=== PATIENT | female | born 1975 | race Caucasian/White ===

== ENCOUNTER 2017-10-25 18:25 | Emergency (ER) | payer MEDICARE ==
[~2017-10-25] VITALS: Ht 154.9 cm; Wt 99.8 kg
[~2017-10-25 18:25] MED LIST: ACEBUTCAFT; ACET500; ACTOS; AMIT25 PO; AMOX500 PO; ASCO500; BACL10 PO; CALAN PO; CALCA500CH PO; CALCAVITD PO; CALCIT950 PO; CALCIUM PO; CEPH500 PO; CHOL10002; CLIN300 PO; CODGUAEL PO; CYAN100 PO; CYCL10 PO; DULO60 PO; ENOX80I SC; ERGO50000 PO; ERYT.5TO OS; ESCI10; FAMO20 PO; FURO20 PO; GABA100 PO; HYDACE5 PO; HYDCHL12.5 PO; HYDHOMSY; IBUP400; IBUP800; IRON18 MG PO; KETO10 PO; LASIX; LEVSOD100; LEVSOD100 PO; LEVSOD112 PO; LEVSOD150; LEVSOD200; LEVSOD200 PO; LEVSOD25 PO; Levothyroxine200 MCG; Levothyroxine200 MCG PO; MAGOXI400 PO; METCAR500 PO; MULVITMIND PO; NAPR220; Norco 5-325 Ta1 EACH PO; ONDA4ODT MM; OXYACE5T PO; PIOG15 PO; Percocet 5-3251 EACH PO; SERT20L; SUMA25; SYNTHROID; SYNTHROID0.2 MG PO; TOPI25 PO; TRAM50; VERA120 PO; VITAMIN D PO; Verapamil ER100 MG; Verotin-Gr Cap1 EACH; WHEELCHAIR USE; Zofran8 MG PO
[2017-10-25] MEDS ORDERED: Norco 5-325 Ta1 EACH PO (20:22)
== END 2017-10-25 20:30 | disposition home or self-care (01) ==
LOC: ER 18:25
DX: M79.662 Pain in left lower leg (principal); E03.9 Hypothyroidism, unspecified; I10 Essential (primary) hypertension; Z88.6 Allergy status to analgesic agent; Z88.1 Allergy status to other antibiotic agents; Z88.2 Allergy status to sulfonamides; Z79.899 Other long term (current) drug therapy; Z98.84 Bariatric surgery status; W19.XXXA Unspecified fall, initial encounter
CPT/HCPCS: 73564; 73590; 99283

== ENCOUNTER 2018-03-18 07:09 | Day surgery (SDC) | payer BC, MEDICARE ==
[~2018-03-18] VITALS: Ht 154.9 cm; Wt 94.9 kg
== END 2018-03-18 13:04 | disposition home or self-care (01) ==
LOC: ORSCSDS 07:09
PROVIDERS: Orthopaedic Surgery
PROC: 0MRP47Z Replacement of Left Knee Bursa and Ligament with Autologous Tissue Substitute, Percutaneous Endoscopic Approach (ICD-10-PCS; principal; 2018-03-18 08:30)
PROC: 0SBD4ZZ Excision of Left Knee Joint, Percutaneous Endoscopic Approach (ICD-10-PCS; principal; 2018-03-18 08:30)
DX: S83.512A Sprain of anterior cruciate ligament of left knee, initial encounter (principal); M22.42 Chondromalacia patellae, left knee; M23.252 Derangement of posterior horn of lateral meniscus due to old tear or injury, left knee; M23.222 Derangement of posterior horn of medial meniscus due to old tear or injury, left knee; E03.9 Hypothyroidism, unspecified; E66.01 Morbid (severe) obesity due to excess calories; Z68.39 Body mass index [BMI] 39.0-39.9, adult; Z79.899 Other long term (current) drug therapy
CPT/HCPCS: C1713; J0171; J0690; J1100; J2250; J2405; J2795; J3010

== ENCOUNTER → 2018-11-10 | Outpatient (CLI) | payer BC, MEDICARE ==
[2018-11-13 02:12] LABS: CHLAMYDIA TRACHOMATIS, NAA Negative (Negative); HPV 16 Negative (Negative); HPV 18 Negative (Negative); HPV OTHER HR TYPES Negative (Negative); NEISSERIA GONORRHOEAE, NAA Negative (Negative)
== END | disposition home or self-care (01) ==
LOC: LAB SHORT 16:22 → LAB 16:22
PROVIDERS: Obstetrics & Gynecology
DX: O09.521 Supervision of elderly multigravida, first trimester (principal)
CPT/HCPCS: 87491; 87591; 87624; G0123

== ENCOUNTER → 2019-05-12 | Outpatient (CLI) | payer BC, MEDICARE ==
[~2019-05-12] MED LIST changes: +MELA3 PO; +UNISOM25 MG PO
== END | disposition home or self-care (01) ==
LOC: LAB 12:25 → LAB SHORT 12:25
DX: Z34.00 Encounter for supervision of normal first pregnancy, unspecified trimester (principal)
CPT/HCPCS: 87081; 87653

== ENCOUNTER 2019-06-01 19:11 | Inpatient (IN) | payer BC, MEDICARE ==
[~2019-06-01] VITALS: Ht 154.9 cm; Wt 108.0 kg
[~2019-06-01 19:11] MED LIST changes: -MELA3 PO; -UNISOM25 MG PO
[2019-06-01] MEDS ORDERED: UNISOM25 MG PO (19:56)
[2019-06-01] MEDS ORDERED: MELA3 PO (19:56)
[2019-06-01 20:42] LABS: BASOPHILS ABSOLUTE AUTO 0.03 K/mm3 (0.00-0.23); BASOPHILS PERCENT AUTO 0 % (0-2); EOSINOPHILS ABSOLUTE AUTO 0.05 K/mm3 (0.00-0.68); EOSINOPHILS PERCENT AUTO 1 % (0-6); Hematocrit 38.6 % (33.0-51.0); Hemoglobin 12.6 g/dL (11.5-16.0); IMMATURE GRAN ABSOLUTE AUTO 0.03 K/mm3 (0.00-0.10); IMMATURE GRAN PERCENT AUTO 0 % (0-1); LYMPHOCYTES ABSOLUTE AUTO 2.25 K/mm3 (0.84-5.20); LYMPHOCYTES PERCENT AUTO 25 % (21-46); MONOCYTES ABSOLUTE AUTO 0.71 K/mm3 (0.16-1.47); MONOCYTES PERCENT AUTO 8 % (4-13); Mean Corpuscular HGB 31.5 pg (26.0-34.0); Mean Corpuscular HGB Conc 32.6 g/dL (31.5-36.5); Mean Corpuscular Volume 97 fL (80-100); Mean Platelet Volume 10.9 fL (9.1-12.4); NEUTROPHILS PERCENT AUTO 66 % (41-73); Platelet Count 218 K/mm3 (150-400); RDW Coefficient Variation 12.2 % (11.7-14.2); RDW Standard Deviation 43.3 fL (35.1-46.3); White Blood Cell Count 9.07 K/mm3 (4.00-11.30)
--- NOTE | 2019-06-02 17:14 | NUR ---
CONSULT, LESS THAN AN HOUR OLD. MOM HAS LOST A LOT OF WEIGHT AND HAS LOOSE SKIN ON BREASTS, PENDULOUS. INSTRUCT/DEMO SUPPORTIVE CLOTH UNDER BREAST, POSITIONING BABY TO WHERE NIPPLE IS, NOT CHASING BABY WITH BREAST, POSITIONING TO HELP ACHIEVE AN ASYMETRIC LATCH, FURTHER WIDENING LATCH FOR COMFORT. MOM TOOK BF CLASS, IS HANDLING BABY WELL, LOVING. INSTRUCT IN CHANGES TO EXPECT DURING THE FIRST WEEK WITH BABY AND WITH FEEDINGS AND REFERRED TO BF [facility] FOR PHOTOS AND INFORMATION. QUESTIONS ANSWERED.
--- NOTE | 2019-06-03 00:19 | NUR ---
assisted with , mom anxious, tearful and upset that everything she read and everyone she spoke to said that breastfeeing does not hurt, and she finds it to be very painful. noted both breasts to havehicky-type spots on the side of the nipple. decided with pt to try a nipple shield for comfort and ease of latch for baby. as baby started to nurse well with shield, mom encouraged to relax, encouraged that she was holding well and baby was nursing very well. baby nursed about 10 minutes, and then taken with RN so parnets can get some rest
--- NOTE | 2019-06-03 04:06 | NUR ---
[id number] pt has made decision to bottle feed, and is at ease about her decision
[2019-06-03 05:29] LABS: Hematocrit 28.3 % (33.0-51.0); Hemoglobin 9.4 g/dL (11.5-16.0); Mean Corpuscular HGB 31.6 pg (26.0-34.0); Mean Corpuscular HGB Conc 33.2 g/dL (31.5-36.5); Mean Corpuscular Volume 95 fL (80-100); Mean Platelet Volume 11.2 fL (9.1-12.4); Platelet Count 156 K/mm3 (150-400); RDW Coefficient Variation 12.3 % (11.7-14.2); RDW Standard Deviation 42.6 fL (35.1-46.3); Red Blood Cell Count 2.97 M/mm3 (3.80-5.20); White Blood Cell Count 13.37 K/mm3 (4.00-11.30)
--- NOTE | 2019-06-03 14:16 | NUR ---
ROUNDING MOM SLEEPING IN ROOM, NO FEEDING EDUCATION DONE.
--- NOTE | 2019-06-03 18:04 | NUR ---
DISCHARGED PATIENT D/C AT 1800 AND WALKED TO CAR, PROPERLY IN [facility]
== END 2019-06-03 18:00 | disposition home or self-care (01) | DRG 807 ==
LOC: BC 19:11
PROVIDERS: ADMIT Obstetrics & Gynecology
PROC: 3E033VJ Introduction of Other Hormone into Peripheral Vein, Percutaneous Approach (ICD-10-PCS; 2019-06-01)
PROC: 10E0XZZ Delivery of Products of Conception, External Approach (ICD-10-PCS; principal; 2019-06-02)
PROC: 0KQM0ZZ Repair Perineum Muscle, Open Approach (ICD-10-PCS; 2019-06-02)
PROC: 3E0R3BZ Introduction of Anesthetic Agent into Spinal Canal, Percutaneous Approach (ICD-10-PCS; 2019-06-02)
PROC: 10907ZC Drainage of Amniotic Fluid, Therapeutic from Products of Conception, Via Natural or Artificial Opening (ICD-10-PCS; 2019-06-02)
PROC: 10H07YZ Insertion of Other Device into Products of Conception, Via Natural or Artificial Opening (ICD-10-PCS; 2019-06-02)
PROC: 3E0234Z Introduction of Serum, Toxoid and Vaccine into Muscle, Percutaneous Approach (ICD-10-PCS; 2019-06-03)
DX: O36.5930 Maternal care for other known or suspected poor fetal growth, third trimester, not applicable or unspecified (principal); Z37.0 Single live birth; Z3A.39 39 weeks gestation of pregnancy; O70.1 Second degree perineal laceration during delivery; Z23 Encounter for immunization; O69.81X0 Labor and delivery complicated by cord around neck, without compression, not applicable or unspecified; O99.214 Obesity complicating childbirth; E66.01 Morbid (severe) obesity due to excess calories; M79.7 Fibromyalgia; Z98.84 Bariatric surgery status; Z88.6 Allergy status to analgesic agent; Z88.1 Allergy status to other antibiotic agents; Z88.2 Allergy status to sulfonamides
CPT/HCPCS: 36415; 51702; 85025; 85027; 90471; 90707; A9270; J2001; J2210; J2405; J2590; J3010; J7120

== ENCOUNTER 2020-01-31 16:03 | Emergency (ER) | payer BC ==
[~2020-01-31] VITALS: Ht 154.9 cm; Wt 94.4 kg
[~2020-01-31 16:03] MED LIST changes: +MELA3 PO; +UNISOM25 MG PO
[2020-01-31] MEDS ORDERED: TOPI25 PO (17:25)
[2020-01-31] MEDS ORDERED: AMIT10 PO (17:25)
[2020-01-31] MEDS ORDERED: Tizanidine HCl2 MG (17:26)
== END 2020-01-31 19:14 | disposition home or self-care (01) ==
LOC: ER 16:03
DX: S50.01XA Contusion of right elbow, initial encounter (principal); E03.9 Hypothyroidism, unspecified; Z88.6 Allergy status to analgesic agent; Z88.1 Allergy status to other antibiotic agents; Z88.2 Allergy status to sulfonamides; Z79.899 Other long term (current) drug therapy; W22.8XXA Striking against or struck by other objects, initial encounter
CPT/HCPCS: 73080; 99283-25

== ENCOUNTER 2020-08-08 12:35 | Emergency (ER) | payer BC ==
[~2020-08-08] VITALS: Ht 154.9 cm; Wt 104.3 kg
[~2020-08-08 12:35] MED LIST changes: +AMIT10 PO; +Tizanidine HCl2 MG
[2020-08-08] MEDS ORDERED: ZOLOFT100 M2 PO (16:27)
[2020-08-08] MEDS ORDERED: HYDR1TAB94 PO (16:39)
== END 2020-08-08 17:13 | disposition home or self-care (01) ==
LOC: ER 12:35
DX: G89.29 Other chronic pain (principal); M54.5 Low back pain; Z79.899 Other long term (current) drug therapy
CPT/HCPCS: 99283

== ENCOUNTER → 2021-01-04 | Outpatient (CLI) | payer BC, OTHER ==
[~2021-01-04] MED LIST changes: +HYDR1TAB94 PO; +ZOLOFT100 M2 PO
[2021-01-04 11:47] LABS: Source, Urine Clean Catch
[2021-01-04 13:44] LABS: Appearance, Urine Clear (Clear); Bilirubin, Urine Neg (Neg); Blood, Urine Neg (Neg); Color, Urine Yellow (P-Yellow); Glucose Qualitative, Urine Neg (Neg); Ketones, Urine Neg (Neg); Leukocyte Esterase, Urine 1+ (Neg); Nitrite, Urine Neg (Neg); Protein, Urine Neg (Neg); Urobilinogen, Urine NORM (Normal)
[2021-01-04 14:46] LABS: Bacteria Mod /hpf; Red Blood Cells, Urine 0-2 /hpf (0-2); Squamous Epithelial Cells Mod /hpf (Few); White Blood Cells, Urine 0-2 /hpf (0-5)
[2021-01-05 09:48] LABS: Candida species (DNA Probe) Negative (NEGATIVE); G. vaginalis (DNA Probe) Negative (NEGATIVE); T. vaginalis (DNA Probe) Negative (NEGATIVE)
== END | disposition home or self-care (01) ==
LOC: LAB SHORT 11:46
PROVIDERS: Obstetrics & Gynecology
DX: R10.2 Pelvic and perineal pain (principal)
CPT/HCPCS: 81001; 87086; 87480; 87510; 87660

== ENCOUNTER 2021-04-09 12:55 | Emergency (ER) | payer OTHER ==
[~2021-04-09] VITALS: Ht 154.9 cm; Wt 107.5 kg
== END 2021-04-09 14:59 | disposition home or self-care (01) ==
LOC: ER 12:55
DX: O9A.212 Injury, poisoning and certain other consequences of external causes complicating pregnancy, second trimester (principal); S91.202A Unspecified open wound of left great toe with damage to nail, initial encounter; E03.9 Hypothyroidism, unspecified; Z88.6 Allergy status to analgesic agent; Z88.1 Allergy status to other antibiotic agents; Z88.2 Allergy status to sulfonamides; Z79.899 Other long term (current) drug therapy; Z3A.25 25 weeks gestation of pregnancy; W22.8XXA Striking against or struck by other objects, initial encounter
CPT/HCPCS: 11730; 99282-25

== ENCOUNTER 2021-07-18 02:38 | Inpatient (IN) | payer OTHER ==
[~2021-07-18] VITALS: Ht 154.9 cm; Wt 113.0 kg
[2021-07-18 03:40] LABS: BASOPHILS ABSOLUTE AUTO 0.04 K/mm3 (0.00-0.23); BASOPHILS PERCENT AUTO 1 % (0-2); EOSINOPHILS ABSOLUTE AUTO 0.04 K/mm3 (0.00-0.68); EOSINOPHILS PERCENT AUTO 1 % (0-6); Hematocrit 35.2 % (33.0-51.0); Hemoglobin 11.8 g/dL (11.5-16.0); IMMATURE GRAN ABSOLUTE AUTO 0.02 K/mm3 (0.00-0.10); IMMATURE GRAN PERCENT AUTO 0 % (0-1); LYMPHOCYTES ABSOLUTE AUTO 2.04 K/mm3 (0.84-5.20); LYMPHOCYTES PERCENT AUTO 29 % (21-46); MONOCYTES ABSOLUTE AUTO 0.58 K/mm3 (0.16-1.47); MONOCYTES PERCENT AUTO 8 % (4-13); Mean Corpuscular HGB 31.8 pg (26.0-34.0); Mean Corpuscular HGB Conc 33.5 g/dL (31.5-36.5); Mean Corpuscular Volume 95 fL (80-100); Mean Platelet Volume 10.6 fL (9.1-12.4); NEUTROPHILS ABSOLUTE AUTO 4.33 K/mm3 (1.96-9.15); NEUTROPHILS PERCENT AUTO 61 % (41-73); Platelet Count 239 K/mm3 (150-400); RDW Coefficient Variation 12.4 % (11.7-14.2); RDW Standard Deviation 42.9 fL (35.1-46.3); Red Blood Cell Count 3.71 M/mm3 (3.80-5.20); White Blood Cell Count 7.05 K/mm3 (4.00-11.30)
[2021-07-18 04:17] LABS: Influenza A, PCR NEGATIVE (NEGATIVE); Influenza B, PCR NEGATIVE (NEGATIVE); Resp Syncytial Virus, PCR NEGATIVE (NEGATIVE); SARS-Cov-2 (COVID-19) PCR, MMC NEGATIVE (NEGATIVE)
--- NOTE | 2021-07-18 12:32 | NUR ---
with fundal massage, pt has a large panus and her belly button is haning low with her panus from wt loss, (belly button down by fundus). hard to determine position of fundus
--- NOTE | 2021-07-18 14:58 | NUR ---
600ml of ns/pitocin left in bag, sl pt for shower, restarted the pitocin at 125ml/hr due to pt hx of a pph and is a red head, and very obese with lots of loose skin. difficult to tell, pt reports was able to void in shower
--- NOTE | 2021-07-18 16:48 | NUR ---
pt ff, small bleeding, pt has felt no gushes over the last hour and the only bleeding was from the fundal massage. pitocin continuing to infuse slowly
--- NOTE | 2021-07-18 17:19 | NUR ---
report to pankaj owens
[2021-07-19 05:44] LABS: BASOPHILS ABSOLUTE AUTO 0.05 K/mm3 (0.00-0.23); BASOPHILS PERCENT AUTO 0 % (0-2); EOSINOPHILS ABSOLUTE AUTO 0.07 K/mm3 (0.00-0.68); EOSINOPHILS PERCENT AUTO 1 % (0-6); Hematocrit 26.4 % (33.0-51.0); Hemoglobin 8.8 g/dL (11.5-16.0); IMMATURE GRAN ABSOLUTE AUTO 0.06 K/mm3 (0.00-0.10); IMMATURE GRAN PERCENT AUTO 1 % (0-1); LYMPHOCYTES ABSOLUTE AUTO 2.53 K/mm3 (0.84-5.20); LYMPHOCYTES PERCENT AUTO 21 % (21-46); MONOCYTES ABSOLUTE AUTO 0.82 K/mm3 (0.16-1.47); MONOCYTES PERCENT AUTO 7 % (4-13); Mean Corpuscular HGB 32.1 pg (26.0-34.0); Mean Corpuscular HGB Conc 33.3 g/dL (31.5-36.5); Mean Corpuscular Volume 96 fL (80-100); Mean Platelet Volume 10.8 fL (9.1-12.4); NEUTROPHILS ABSOLUTE AUTO 8.43 K/mm3 (1.96-9.15); NEUTROPHILS PERCENT AUTO 70 % (41-73); Platelet Count 220 K/mm3 (150-400); RDW Coefficient Variation 12.6 % (11.7-14.2); RDW Standard Deviation 43.6 fL (35.1-46.3); Red Blood Cell Count 2.74 M/mm3 (3.80-5.20); White Blood Cell Count 11.96 K/mm3 (4.00-11.30)
--- NOTE | 2021-07-19 10:35 | NUR ---
DR VELASQUEZ PAGED REGARDING PT BLOOD PRESSURE
[2021-07-19 11:52] LABS: Alanine Aminotransfer (ALT/SGP 21 U/L (12-78); Albumin, Blood 2.4 g/dL (3.4-5.0); Albumin/Globulin Ratio 0.6 (0.8-1.8); Alk Phos 144 U/L (50-136); Anion Gap 6 mmol/L (6-16); Aspartate Aminotrans (AST/SGOT 46 U/L (12-37); Bilirubin, Total 0.2 mg/dL (0.1-1.0); Blood Urea Nitrogen 12 mg/dL (8-24); Bun/Creatinine Ratio 12.8 (12.0-20.0); CO2, Blood 23 mmol/L (21-32); Calcium, Blood 8.6 mg/dL (8.5-10.1); Chloride, Blood 108 mmol/L (98-108); Creatinine, Blood 0.93 mg/dL (0.40-1.00); Globulin, Blood 3.8 g/dL (2.2-4.0); Glomerular Filtration Rate >60 (60-); Glucose, Blood 80 mg/dL (70-99); Potassium, Blood 3.8 mmol/L (3.5-5.5); Sodium, Blood 137 mmol/L (136-145); Total Protein, Blood 6.2 g/dL (6.4-8.2)
--- NOTE | 2021-07-19 12:03 | NUR ---
bp 176/101 pt sitting upright eating lunch. pt reclined in low fowlers on r side
--- NOTE | 2021-07-19 12:55 | NUR ---
have to restart iv, earlier when iv dcd, the resident had stopped the iron infusion when done and dcd the cap on the iv leaving it open to air, dcd the iv for safety.
--- NOTE | 2021-07-19 13:16 | NUR ---
MAGNESIUM SULFATE 6GM STARTED WITH AC RN. WE HAVE A 2 GM BAG AND A 4GM BAG. INSUSED OVER 30 MINUTES, PUMP DIDNT LIKE THE PROGRAMING, STARTED THE 2GM PER HOUR AT 1350 WITH AC RN HHOLCOMB RNC PT LS CONTINUE TO BE CLEAR, DTR +1, NO CLONUS, NO UPPER EPIGASTRIC PAIN, STARTING TO GET THE WARM FEELING AND YAWNING A LITTLE
--- NOTE | 2021-07-19 17:02 | NUR ---
CALLED AND SPOKE TO DR. VELASQUEZ ABOUT PT'S REQUEST FOR A RAGLAND CATHETER. DR. VELASQUEZ DECLINES AT THIS TIME DUE TO WANTING TO DECREASE PT'S RISK OF CAUTI. SUGGESTED USING A BEDSIDE COMMODE AT THIS TIME. RN BROUGHT BEDSIDE COMMODE TO PT'S ROOM.
--- NOTE | 2021-07-19 17:41 | NUR ---
talked to dr vicente, about pt having to sit up to eat, last 2 blood pressures were with pt sitting up to eat, hx of gastric bypass and cant eat laying down. hold nifedipine for now and if next 2 blood pressures met criteria, give the 20mg of nifedipine
--- NOTE | 2021-07-20 04:33 | NUR ---
DUE TO ELEVATED BLOOD PRESSURES, PATIENT NOW USING BEDSIDE COMMODE
[2021-07-20 05:31] LABS: Hematocrit 29.5 % (33.0-51.0); Hemoglobin 9.8 g/dL (11.5-16.0); Mean Corpuscular HGB 31.6 pg (26.0-34.0); Mean Corpuscular HGB Conc 33.2 g/dL (31.5-36.5); Mean Corpuscular Volume 95 fL (80-100); Mean Platelet Volume 10.2 fL (9.1-12.4); Platelet Count 236 K/mm3 (150-400); RDW Coefficient Variation 12.6 % (11.7-14.2); RDW Standard Deviation 43.7 fL (35.1-46.3); White Blood Cell Count 8.87 K/mm3 (4.00-11.30)
[2021-07-20 05:53] LABS: Alanine Aminotransfer (ALT/SGP 21 U/L (12-78); Albumin, Blood 2.3 g/dL (3.4-5.0); Albumin/Globulin Ratio 0.6 (0.8-1.8); Alk Phos 128 U/L (50-136); Anion Gap 6 mmol/L (6-16); Aspartate Aminotrans (AST/SGOT 39 U/L (12-37); Bilirubin, Total 0.2 mg/dL (0.1-1.0); Blood Urea Nitrogen 8 mg/dL (8-24); CO2, Blood 26 mmol/L (21-32); Calcium, Blood 7.7 mg/dL (8.5-10.1); Chloride, Blood 106 mmol/L (98-108); Creatinine, Blood 0.67 mg/dL (0.40-1.00); Globulin, Blood 3.7 g/dL (2.2-4.0); Glomerular Filtration Rate >60 (60-); Glucose, Blood 80 mg/dL (70-99); Potassium, Blood 3.5 mmol/L (3.5-5.5); Sodium, Blood 138 mmol/L (136-145)
--- NOTE | 2021-07-20 08:09 | NUR ---
PT DECLINING TO WEAR PAS STOCKING. WILLING TO MOVE HER LEGS AND LIFT THEM FREQUENTLY.
--- NOTE | 2021-07-20 11:38 | NUR ---
attempt to call dr vicente about blood pressure, her phone cant recieve incoming calls. gave hydrazoline at 1056 5mg bp at 1106 164/85 bp at 1121 166/95 bp at 1125 163/106 pt needs to use bathroom, repeated bp just before getting up bp at 1136 157/98 just back from bathroom, attempt to call dr vicente
--- NOTE | 2021-07-20 14:08 | NUR ---
PT IS WANTING SOMETHING SIGNED LEGALLY THAT HAS TO DO WITH HER SISTER BEING ABLE TO TAKE THE BABY IF SOMETHING HAPPENS TO HER, PT IS LEGALLY AND HER IS THE FATHER OF THIS CHILD AND HER OTHER CHILD. WENT TO [facility]ON[facility] CRANE RN AND SHE IS TRYING TO GET AHOLD OF MARILEE LIZARRAGA
--- NOTE | 2021-07-20 14:37 | NUR ---
dr vicente in [place], just got second bp over 160, dr vicente said to give lisinopril now 10mg and will have dr blake come and see pt
--- NOTE | 2021-07-20 14:39 | NUR ---
DR REYEZ REPORTS HAS TO GO BACK TO SURGERY, WILL HAVE DR WADE COME AND SEE PT, TO CALL DR WADE FOR ADDITIONAL BP
--- NOTE | 2021-07-20 17:32 | NUR ---
DR REYEZ CALLED REPORTS STILL AT [facility], JUST FINISHED [facility] A CASE AND WILL BE DOWN WHEN DONE CHARTING. DR REYEZ MADE AWARE PT LAST SEEN OVER 24 HOURS AGO AT 0830. THIS WAS CHARTED IN THE WRONG PT CHART, CORRECTED, SONIA RNC
--- NOTE | 2021-07-20 17:39 | NUR ---
PATIENT REPORTS SHE IS AT AN 8/10 ON PAIN SCALE. SHE DECLINES TYLENOL AT THIS TIME BECAUSE SHE BELIEVES THE PAIN (HEADACHE) IS CAUSED BY HER ELEVATED BLOOD PRESSURE AND SHE WOULD LIKE TO GIVE THE BP MED TIME TO WORK.
--- NOTE | 2021-07-20 17:45 | NUR ---
dr vicente at bedside talking with patient
[2021-07-20 18:33] LABS: BASOPHILS ABSOLUTE AUTO 0.05 K/mm3 (0.00-0.23); BASOPHILS PERCENT AUTO 1 % (0-2); EOSINOPHILS ABSOLUTE AUTO 0.06 K/mm3 (0.00-0.68); EOSINOPHILS PERCENT AUTO 1 % (0-6); Hematocrit 30.7 % (33.0-51.0); Hemoglobin 10.3 g/dL (11.5-16.0); IMMATURE GRAN ABSOLUTE AUTO 0.03 K/mm3 (0.00-0.10); IMMATURE GRAN PERCENT AUTO 0 % (0-1); LYMPHOCYTES ABSOLUTE AUTO 1.48 K/mm3 (0.84-5.20); LYMPHOCYTES PERCENT AUTO 17 % (21-46); MONOCYTES ABSOLUTE AUTO 0.53 K/mm3 (0.16-1.47); MONOCYTES PERCENT AUTO 6 % (4-13); Mean Corpuscular HGB 31.8 pg (26.0-34.0); Mean Corpuscular HGB Conc 33.6 g/dL (31.5-36.5); Mean Corpuscular Volume 95 fL (80-100); Mean Platelet Volume 9.9 fL (9.1-12.4); NEUTROPHILS ABSOLUTE AUTO 6.46 K/mm3 (1.96-9.15); NEUTROPHILS PERCENT AUTO 75 % (41-73); Platelet Count 279 K/mm3 (150-400); RDW Coefficient Variation 12.6 % (11.7-14.2); RDW Standard Deviation 43.2 fL (35.1-46.3); Red Blood Cell Count 3.24 M/mm3 (3.80-5.20); White Blood Cell Count 8.61 K/mm3 (4.00-11.30)
[2021-07-20 18:55] LABS: Alanine Aminotransfer (ALT/SGP 23 U/L (12-78); Albumin, Blood 2.6 g/dL (3.4-5.0); Albumin/Globulin Ratio 0.6 (0.8-1.8); Alk Phos 140 U/L (50-136); Anion Gap 7 mmol/L (6-16); Aspartate Aminotrans (AST/SGOT 43 U/L (12-37); Bilirubin, Total 0.2 mg/dL (0.1-1.0); Blood Urea Nitrogen 10 mg/dL (8-24); Bun/Creatinine Ratio 10.9 (12.0-20.0); CO2, Blood 27 mmol/L (21-32); Calcium, Blood 7.7 mg/dL (8.5-10.1); Chloride, Blood 103 mmol/L (98-108); Creatinine, Blood 0.92 mg/dL (0.40-1.00); Globulin, Blood 4.1 g/dL (2.2-4.0); Glomerular Filtration Rate >60 (60-); Glucose, Blood 88 mg/dL (70-99); Potassium, Blood 3.9 mmol/L (3.5-5.5); Sodium, Blood 137 mmol/L (136-145); Total Protein, Blood 6.7 g/dL (6.4-8.2)
--- NOTE | 2021-07-20 19:02 | NUR ---
DR REYEZ AT BEDSIDE, AWARE OF CHEMISTRY LABS
[2021-07-21 06:11] LABS: Hematocrit 28.2 % (33.0-51.0); Hemoglobin 9.2 g/dL (11.5-16.0); Mean Corpuscular HGB 31.7 pg (26.0-34.0); Mean Corpuscular HGB Conc 32.6 g/dL (31.5-36.5); Mean Corpuscular Volume 97 fL (80-100); Mean Platelet Volume 10.1 fL (9.1-12.4); Platelet Count 263 K/mm3 (150-400); RDW Coefficient Variation 12.7 % (11.7-14.2); RDW Standard Deviation 45.3 fL (35.1-46.3); White Blood Cell Count 7.53 K/mm3 (4.00-11.30)
--- NOTE | 2021-07-21 06:22 | NUR ---
pT WAS ABLE TO SLEEP THE MAJORITY OF THIS SHIFT, RN PROVIDED NB CARE SO PT COULD REST. PT CONTINUE TO REPORT A HEADACHE AT 4-5/10 PAIN BUT NO CHANGES. BP HAS REMAINED STABLE THOUGHOUT THE SHIFT.
[2021-07-21 06:44] LABS: Alanine Aminotransfer (ALT/SGP 21 U/L (12-78); Albumin, Blood 2.2 g/dL (3.4-5.0); Albumin/Globulin Ratio 0.6 (0.8-1.8); Alk Phos 117 U/L (50-136); Anion Gap 5 mmol/L (6-16); Aspartate Aminotrans (AST/SGOT 36 U/L (12-37); Bilirubin, Total 0.2 mg/dL (0.1-1.0); Blood Urea Nitrogen 13 mg/dL (8-24); Bun/Creatinine Ratio 15.9 (12.0-20.0); CO2, Blood 28 mmol/L (21-32); Calcium, Blood 7.6 mg/dL (8.5-10.1); Chloride, Blood 105 mmol/L (98-108); Creatinine, Blood 0.82 mg/dL (0.40-1.00); Globulin, Blood 3.7 g/dL (2.2-4.0); Glomerular Filtration Rate >60 (60-); Glucose, Blood 70 mg/dL (70-99); Potassium, Blood 4.3 mmol/L (3.5-5.5); Sodium, Blood 138 mmol/L (136-145); Total Protein, Blood 5.9 g/dL (6.4-8.2)
--- NOTE | 2021-07-21 08:20 | NUR ---
Dr. Dawson by to round on pt, updated on eleveated BPs. No new orders regarding this. Order to increase Levothyroxine dose starting this am.
--- NOTE | 2021-07-21 08:35 | NUR ---
Update to who is in house on pt's elevated BPs, remains asymptomatic. As pulse is in the 70s, states go ahead and give 20mg IV Labetolol.
--- NOTE | 2021-07-21 10:00 | NUR ---
Dr. Jarrett called to check on pt, updated on BPs. States to check with who is in house on whether to start PO Labetolol or not. says to hold off at this time and will re-eval later.
--- NOTE | 2021-07-21 12:30 | NUR ---
Dr. Dawson by to check on pt. Updated on recent BPs. States will just continue to monitor at this time. Pt remains asymptomatic.
--- NOTE | 2021-07-21 15:55 | NUR ---
Update to Dr. Jarrett on pt's increased BPs after getting up OOB. States give 5mg IV Hydralazine.
--- NOTE | 2021-07-21 16:48 | NUR ---
Update to on increased BPs of 160s/80-90s after 5mg IV Hydralazine dose. States not concerned about BPs in 160s, not going to treat, but keep doing Q15min VS and can call if they get into 170-180s. Updated warehouse order pickerDURGA Werner.
--- NOTE | 2021-07-21 17:39 | NUR ---
CALL TO TO UPDATE ON PT'S BP. ORDER FOR 20MG IV LABETOLOL, RECHECK BP IN 10MIN. IF <170, MONITOR. IF STILL ELEVATED, CALL BACK. DISCUSSED WANTING TO GIVE NOC SHIFT A PLAN, STATES WILL CALL AFTER CHANGE OF SHIFT TO GIVE AN UPDATE.
[2021-07-22] MEDS ORDERED: Prinivil10 MG PO (12:21)
[2021-07-22] MEDS ORDERED: LABE200 PO (12:22)
--- NOTE | 2021-07-22 17:21 | NUR ---
call to to update on recent BPs and not having given PO Labetolol at this point. states that's fine, check another BP in 10min from last one and if <170/110, pt okay to d/c home with new BP med orders. also updated on home cuff vs our cuff readings and is satisfied with these.
== END 2021-07-22 17:36 | disposition home or self-care (01) | DRG 806 ==
LOC: OBS 02:38 → BC 02:48 → OBS 02:49 → BC 02:50
PROVIDERS: Obstetrics & Gynecology; ADMIT Obstetrics & Gynecology
PROC: 10E0XZZ Delivery of Products of Conception, External Approach (ICD-10-PCS; principal; 2021-07-18)
PROC: 0HQ9XZZ Repair Perineum Skin, External Approach (ICD-10-PCS; 2021-07-18)
DX: O99.214 Obesity complicating childbirth (principal); D62 Acute posthemorrhagic anemia; Z37.0 Single live birth; O99.344 Other mental disorders complicating childbirth; Z20.822 Contact with and (suspected) exposure to COVID-19; O14.14 Severe pre-eclampsia complicating childbirth; Z3A.39 39 weeks gestation of pregnancy; O70.0 First degree perineal laceration during delivery; O69.81X0 Labor and delivery complicated by cord around neck, without compression, not applicable or unspecified; O13.4 Gestational [pregnancy-induced] hypertension without significant proteinuria, complicating childbirth; O99.284 Endocrine, nutritional and metabolic diseases complicating childbirth; Z67.30 Type AB blood, Rh positive; E03.9 Hypothyroidism, unspecified; Z98.84 Bariatric surgery status; Z88.1 Allergy status to other antibiotic agents; Z88.2 Allergy status to sulfonamides; Z88.8 Allergy status to other drugs, medicaments and biological substances; Z79.899 Other long term (current) drug therapy
CPT/HCPCS: 0241U; 36415; 80053; 84443; 85025; 85027; 86850; 86900; 86901; A9270; J0360; J1885; J2590; J2916; J3010; J3475; J7120

== ENCOUNTER 2021-10-17 06:37 | Emergency (ER) | payer OTHER ==
[~2021-10-17] VITALS: Ht 170.2 cm; Wt 81.7 kg
[~2021-10-17 06:37] MED LIST changes: +LABE200 PO; +Prinivil10 MG PO
[2021-10-17 07:03] LABS: BASOPHILS PERCENT AUTO 2 % (0-2); EOSINOPHILS ABSOLUTE AUTO 0.28 K/mm3 (0.00-0.68); EOSINOPHILS PERCENT AUTO 4 % (0-6); Hematocrit 36.4 % (33.0-51.0); Hemoglobin 11.4 g/dL (11.5-16.0); IMMATURE GRAN ABSOLUTE AUTO 0.01 K/mm3 (0.00-0.10); IMMATURE GRAN PERCENT AUTO 0 % (0-1); LYMPHOCYTES ABSOLUTE AUTO 2.55 K/mm3 (0.84-5.20); LYMPHOCYTES PERCENT AUTO 38 % (21-46); MONOCYTES PERCENT AUTO 6 % (4-13); Mean Corpuscular HGB 29.1 pg (26.0-34.0); Mean Corpuscular HGB Conc 31.3 g/dL (31.5-36.5); Mean Corpuscular Volume 93 fL (80-100); Mean Platelet Volume 9.9 fL (9.1-12.4); NEUTROPHILS ABSOLUTE AUTO 3.31 K/mm3 (1.96-9.15); NEUTROPHILS PERCENT AUTO 50 % (41-73); Platelet Count 323 K/mm3 (150-400); RDW Coefficient Variation 13.3 % (11.7-14.2); RDW Standard Deviation 45.1 fL (35.1-46.3); Red Blood Cell Count 3.92 M/mm3 (3.80-5.20); White Blood Cell Count 6.65 K/mm3 (4.00-11.30)
[2021-10-17 07:23] LABS: Alanine Aminotransfer (ALT/SGP 21 U/L (12-78); Albumin, Blood 3.3 g/dL (3.4-5.0); Albumin/Globulin Ratio 0.9 (0.8-1.8); Alk Phos 87 U/L (50-136); Anion Gap 8 mmol/L (6-16); Aspartate Aminotrans (AST/SGOT 26 U/L (12-37); Bilirubin, Total 0.2 mg/dL (0.1-1.0); Blood Urea Nitrogen 18 mg/dL (8-24); Bun/Creatinine Ratio 17.5 (12.0-20.0); CO2, Blood 25 mmol/L (21-32); Calcium, Blood 8.4 mg/dL (8.5-10.1); Chloride, Blood 108 mmol/L (98-108); Creatinine, Blood 1.03 mg/dL (0.40-1.00); Globulin, Blood 3.6 g/dL (2.2-4.0); Glomerular Filtration Rate 58 (60-); Glucose, Blood 85 mg/dL (70-99); Potassium, Blood 3.9 mmol/L (3.5-5.5); Sodium, Blood 141 mmol/L (136-145); Total Protein, Blood 6.9 g/dL (6.4-8.2); Troponin I <0.015 ng/mL (0.000-0.040)
== END 2021-10-17 11:49 | disposition home or self-care (01) ==
LOC: ER 06:37
PROVIDERS: Emergency Medicine
DX: R07.9 Chest pain, unspecified (principal); E03.9 Hypothyroidism, unspecified; Z88.1 Allergy status to other antibiotic agents; Z88.2 Allergy status to sulfonamides; Z88.6 Allergy status to analgesic agent; Z79.899 Other long term (current) drug therapy
CPT/HCPCS: 36415; 71045; 80053; 83690; 84484; 85025; 85379; 93005; 93010; 99285-25; A9270

== ENCOUNTER → 2022-02-21 | Outpatient (CLI) | payer OTHER | END | disposition home or self-care (01) | LOC: LAB SHORT 14:32 → LAB 14:32 | DX: N39.0 Urinary tract infection, site not specified (principal) | CPT/HCPCS: 87077; 87086; 87186 ==

== ENCOUNTER 2022-03-02 09:25 | Emergency (ER) | payer OTHER ==
[~2022-03-02] VITALS: Ht 154.9 cm; Wt 104.8 kg
[2022-03-02 11:03] LABS: Source, Urine Clean Catch
[2022-03-02 11:24] LABS: Appearance, Urine Clear (Clear); Bilirubin, Urine Neg (Neg); Blood, Urine Neg (Neg); Color, Urine Yellow (P-Yellow); Glucose Qualitative, Urine Neg (Neg); Ketones, Urine Neg (Neg); Leukocyte Esterase, Urine Neg (Neg); Nitrite, Urine Neg (Neg); Protein, Urine 1+ (Neg); Specific Gravity, Urine 1.025 (1.003-1.022); Urobilinogen, Urine NORM (Normal)
[2022-03-03 13:18] LABS: Candida species (DNA Probe) Negative (NEGATIVE); G. vaginalis (DNA Probe) Negative (NEGATIVE); T. vaginalis (DNA Probe) Negative (NEGATIVE)
== END 2022-03-02 13:41 | disposition home or self-care (01) ==
LOC: ER 09:25
PROVIDERS: Emergency Medicine; Student in an Organized Health Care Education/Training Program
DX: R39.89 Other symptoms and signs involving the genitourinary system (principal); N89.8 Other specified noninflammatory disorders of vagina; I10 Essential (primary) hypertension; E03.9 Hypothyroidism, unspecified; Z88.2 Allergy status to sulfonamides; Z88.1 Allergy status to other antibiotic agents; Z88.6 Allergy status to analgesic agent; Z79.899 Other long term (current) drug therapy
CPT/HCPCS: 81025; 87480; 87510; 87660

== ENCOUNTER → 2022-03-07 | Outpatient (CLI) | payer OTHER ==
[2022-03-07 17:11] LABS: Source, Urine Clean Catch
[2022-03-07 19:24] LABS: Appearance, Urine Hazy (Clear); Bilirubin, Urine Neg (Neg); Blood, Urine Neg (Neg); Glucose Qualitative, Urine Neg (Neg); Ketones, Urine Neg (Neg); Leukocyte Esterase, Urine 2+ (Neg); Nitrite, Urine Neg (Neg); Protein, Urine 1+ (Neg); Urobilinogen, Urine NORM (Normal)
[2022-03-07 19:28] LABS: Color, Urine Pale Yellow (P-Yellow)
[2022-03-07 19:34] LABS: Hyaline Casts 0-2 /lpf (0-2)
[2022-03-07 19:35] LABS: Bacteria Many /hpf; Red Blood Cells, Urine Rare /hpf (0-2); Squamous Epithelial Cells Mod /hpf (Few)
== END | disposition home or self-care (01) ==
LOC: LAB SHORT 17:09
PROVIDERS: Obstetrics & Gynecology
DX: R10.2 Pelvic and perineal pain (principal)
CPT/HCPCS: 81001; 87086

== ENCOUNTER → 2022-04-23 | Outpatient (CLI) | payer OTHER ==
[2022-04-24 11:01] LABS: T. vaginalis (DNA Probe) Negative (NEGATIVE)
[2022-04-24 11:02] LABS: Candida species (DNA Probe) Negative (NEGATIVE); G. vaginalis (DNA Probe) Negative (NEGATIVE)
== END | disposition home or self-care (01) ==
LOC: LAB 10:31 → LAB SHORT 10:31
PROVIDERS: Obstetrics & Gynecology
DX: N89.8 Other specified noninflammatory disorders of vagina (principal)
CPT/HCPCS: 87480; 87510; 87660

== ENCOUNTER 2022-09-20 01:11 | Day surgery (SDC) | payer OTHER ==
[2022-09-20] MEDS ORDERED: CYCLOBENZAPRINE5 MG PO (10:22)
[2022-09-20] MEDS ORDERED: GABA100 PO (10:22)
[2022-09-20] MEDS ORDERED: SUMA25 PO (10:23)
[2022-09-20] MEDS ORDERED: HYDCHL25 PO (10:23)
[2022-09-20] MEDS ORDERED: TOPI25 (10:24)
== END 2022-09-20 10:18 | disposition home or self-care (01) ==
LOC: ATC 01:11
DX: D50.9 Iron deficiency anemia, unspecified (principal); Z88.1 Allergy status to other antibiotic agents; Z88.2 Allergy status to sulfonamides; M79.7 Fibromyalgia; E03.9 Hypothyroidism, unspecified; I10 Essential (primary) hypertension
CPT/HCPCS: J2916

== ENCOUNTER 2022-10-19 09:43 | Day surgery (SDC) | payer OTHER ==
[~2022-10-19 09:43] MED LIST changes: +CYCLOBENZAPRINE5 MG PO; +HYDCHL25 PO; +SUMA25 PO; +TOPI25
== END 2022-10-19 10:58 | disposition home or self-care (01) ==
LOC: ATC 09:43
DX: D50.9 Iron deficiency anemia, unspecified (principal)
CPT/HCPCS: J2916

== ENCOUNTER 2022-11-09 00:28 | Day surgery (SDC) | payer OTHER | END 2022-11-09 11:20 | disposition home or self-care (01) | LOC: ATC 00:28 | DX: D50.9 Iron deficiency anemia, unspecified (principal) | CPT/HCPCS: J2916 ==

== ENCOUNTER 2022-12-21 02:31 | Day surgery (SDC) | payer OTHER | END 2022-12-21 10:50 | disposition home or self-care (01) | LOC: ATC 02:31 | DX: D50.9 Iron deficiency anemia, unspecified (principal); Z88.1 Allergy status to other antibiotic agents; Z88.2 Allergy status to sulfonamides | CPT/HCPCS: 96365; J2916 ==

== ENCOUNTER 2022-12-28 09:31 | Emergency (ER) | payer OTHER ==
[~2022-12-28] VITALS: Ht 154.9 cm; Wt 113.4 kg
[2022-12-28 10:08] LABS: BASOPHILS ABSOLUTE AUTO 0.04 K/mm3 (0.00-0.23); BASOPHILS PERCENT AUTO 1 % (0-2); EOSINOPHILS ABSOLUTE AUTO 0.13 K/mm3 (0.00-0.68); EOSINOPHILS PERCENT AUTO 3 % (0-6); Hematocrit 40.1 % (33.0-51.0); Hemoglobin 12.7 g/dL (11.5-16.0); IMMATURE GRAN ABSOLUTE AUTO 0.01 K/mm3 (0.00-0.10); IMMATURE GRAN PERCENT AUTO 0 % (0-1); LYMPHOCYTES ABSOLUTE AUTO 2.36 K/mm3 (0.84-5.20); LYMPHOCYTES PERCENT AUTO 49 % (21-46); MONOCYTES PERCENT AUTO 8 % (4-13); Mean Corpuscular HGB 29.5 pg (26.0-34.0); Mean Corpuscular HGB Conc 31.7 g/dL (31.5-36.5); Mean Corpuscular Volume 93 fL (80-100); NEUTROPHILS ABSOLUTE AUTO 1.93 K/mm3 (1.96-9.15); NEUTROPHILS PERCENT AUTO 40 % (41-73); Platelet Count 283 K/mm3 (150-400); RDW Coefficient Variation 12.8 % (11.7-14.2); RDW Standard Deviation 43.9 fL (35.1-46.3); White Blood Cell Count 4.87 K/mm3 (4.00-11.30)
[2022-12-28 10:32] LABS: Albumin, Blood 3.3 g/dL (3.4-5.0); Albumin/Globulin Ratio 0.9 (0.8-1.8); Bilirubin, Total 0.2 mg/dL (0.1-1.0); Bun/Creatinine Ratio 25.2 (12.0-20.0); Calcium, Blood 8.6 mg/dL (8.5-10.1); Creatinine, Blood 0.75 mg/dL (0.40-1.00); Free Thyroxine 1.56 ng/dL (0.70-1.60); Globulin, Blood 3.5 g/dL (2.2-4.0); Magnesium, Blood 1.9 mg/dL (1.6-2.4); Potassium, Blood 3.5 mmol/L (3.5-5.5); Thyroid Stimulating Hormone 0.012 uIU/mL (0.360-4.800); Total Protein, Blood 6.8 g/dL (6.4-8.2); Triiodothyronine, Free 2.5 pg/mL (2.18-3.98)
[2022-12-28] MEDS ORDERED: Voltaren100 GM TOP (12:50)
[2022-12-28] MEDS ORDERED: ONDA4ODT MM (12:50)
== END 2022-12-28 13:02 | disposition home or self-care (01) ==
LOC: ER 09:31
PROVIDERS: Student in an Organized Health Care Education/Training Program
DX: R07.89 Other chest pain (principal); R07.2 Precordial pain; R11.0 Nausea; E03.9 Hypothyroidism, unspecified; M79.7 Fibromyalgia; I10 Essential (primary) hypertension; Z88.1 Allergy status to other antibiotic agents; Z88.2 Allergy status to sulfonamides; Z88.6 Allergy status to analgesic agent; Z79.899 Other long term (current) drug therapy
CPT/HCPCS: 36415; 71046; 80053; 83735; 84439; 84443; 84481; 84484; 85025; 93005; 93010; 96374; 96375; 96376; 99285-25; A9270; J1885; J2405; J7030

== ENCOUNTER 2023-01-04 02:13 | Day surgery (SDC) | payer OTHER ==
[~2023-01-04 02:13] MED LIST changes: +Voltaren100 GM TOP
[2023-01-04] MEDS ORDERED: LIDO700A20 TOP (10:43)
== END 2023-01-04 11:34 | disposition home or self-care (01) ==
LOC: ATC 02:13
DX: D50.9 Iron deficiency anemia, unspecified (principal); I10 Essential (primary) hypertension; E03.9 Hypothyroidism, unspecified; E78.5 Hyperlipidemia, unspecified
CPT/HCPCS: J2916

== ENCOUNTER → 2023-02-01 | Outpatient (CLI) | payer OTHER ==
[~2023-02-01] MED LIST changes: +LIDO700A20 TOP
== END | disposition home or self-care (01) ==
LOC: LAB SHORT 14:52 → LAB 14:52
DX: R30.0 Dysuria (principal)
CPT/HCPCS: 87077; 87086; 87186

== ENCOUNTER → 2023-07-01 | Outpatient (CLI) | payer OTHER ==
[2023-07-01 20:15] LABS: Albumin/Globulin Ratio 1.2 (0.8-1.8); Bilirubin, Total 0.2 mg/dL (0.1-1.0); Bun/Creatinine Ratio 15.3 (12.0-20.0); Calcium, Blood 8.9 mg/dL (8.5-10.1); Creatinine, Blood 1.18 mg/dL (0.40-1.00); Globulin, Blood 3.4 g/dL (2.2-4.0); Potassium, Blood 3.8 mmol/L (3.5-5.5); Total Protein, Blood 7.4 g/dL (6.4-8.2)
== END | disposition home or self-care (01) ==
LOC: LAB SHORT 19:20 → LAB 19:20
PROVIDERS: Nurse Practitioner Family
DX: I10 Essential (primary) hypertension (principal)
CPT/HCPCS: 80053

== ENCOUNTER → 2023-07-07 | Outpatient (CLI) | payer OTHER | END | disposition home or self-care (01) | LOC: LAB 16:49 → LAB SHORT 16:49 | DX: B02.9 Zoster without complications (principal) | CPT/HCPCS: 87798 ==

== ENCOUNTER 2024-12-14 11:21 | Emergency (ER) | payer OTHER ==
[~2024-12-14] VITALS: Ht 154.9 cm; Wt 122.5 kg
[2024-12-14] MEDS ORDERED: Ketorolac Tromethamine 15mg Vial IV ONE (11:55)
[2024-12-14 12:09] LABS: Albumin, Blood 3.2 g/dL (3.4-5.0); Albumin/Globulin Ratio 1.1 (0.8-1.8); BASOPHILS ABSOLUTE AUTO 0.08 K/mm3 (0.00-0.23); BASOPHILS PERCENT AUTO 2 % (0-2); Bilirubin, Total 0.2 mg/dL (0.1-1.0); Bun/Creatinine Ratio 16.5 (12.0-20.0); Calcium, Blood 8.2 mg/dL (8.5-10.1); Creatinine, Blood 1.03 mg/dL (0.40-1.00); EOSINOPHILS ABSOLUTE AUTO 0.21 K/mm3 (0.00-0.68); EOSINOPHILS PERCENT AUTO 4 % (0-6); Hemoglobin 11.4 g/dL (11.5-16.0); IMMATURE GRAN ABSOLUTE AUTO 0.01 K/mm3 (0.00-0.10); IMMATURE GRAN PERCENT AUTO 0 % (0-1); LYMPHOCYTES ABSOLUTE AUTO 1.89 K/mm3 (0.84-5.20); LYMPHOCYTES PERCENT AUTO 36 % (21-46); MONOCYTES ABSOLUTE AUTO 0.29 K/mm3 (0.16-1.47); MONOCYTES PERCENT AUTO 6 % (4-13); Mean Corpuscular HGB 32.1 pg (26.0-34.0); Mean Corpuscular HGB Conc 32.6 g/dL (31.5-36.5); Mean Corpuscular Volume 99 fL (80-100); NEUTROPHILS ABSOLUTE AUTO 2.81 K/mm3 (1.96-9.15); NEUTROPHILS PERCENT AUTO 53 % (41-73); Platelet Count 240 K/mm3 (150-400); Potassium, Blood 3.7 mmol/L (3.5-5.5); RDW Coefficient Variation 13.2 % (11.7-14.2); RDW Standard Deviation 46.8 fL (35.1-46.3); Red Blood Cell Count 3.55 M/mm3 (3.80-5.20); Total Protein, Blood 6.2 g/dL (6.4-8.2); White Blood Cell Count 5.29 K/mm3 (4.00-11.30)
[2024-12-14 13:59] LABS: CORONAVIRUS COVID-19 AG Negative (NEGATIVE); INFLUENZA A AG Negative (NEGATIVE); INFLUENZA B AG Negative (NEGATIVE)
[2024-12-14] MEDS ORDERED: Acetaminophen 325 MG TABLET PO ONE (14:15)
[2024-12-14 14:31] VITALS: BP 156/100
== END 2024-12-14 14:36 | disposition home or self-care (01) ==
LOC: ER 11:21
PROVIDERS: Student in an Organized Health Care Education/Training Program
DX: R07.9 Chest pain, unspecified (principal); E03.9 Hypothyroidism, unspecified; I10 Essential (primary) hypertension; Z98.84 Bariatric surgery status; Z88.1 Allergy status to other antibiotic agents; Z88.2 Allergy status to sulfonamides; Z88.6 Allergy status to analgesic agent; Z79.890 Hormone replacement therapy; Z79.899 Other long term (current) drug therapy
CPT/HCPCS: 71045; 80053; 84484; 85025; 87428-QW; 93005; 93010; 96374; 99285-25; A9270; J1885